=== PATIENT | male | born 1975 | race Two or more races ===

== ENCOUNTER 2023-06-07 21:31 | Emergency (ER) | payer SELFPAY ==
[~2023-06-07] VITALS: Ht 177.8 cm; Wt 90.9 kg
[2023-06-08] MEDS ORDERED: TETANUS-DIPTH-ACEL PERTUSSIS 0.5ML SYR Tdap IM ONE
[2023-06-08] MEDS ORDERED: cefTRIAXone SOD 1,000 MG VL IM ONE
[2023-06-08] MEDS ORDERED: KETOROLAC TROMETH 60MG/2ML VIAL IM ONE
[2023-06-08] MEDS ORDERED: CEPH500C PO (00:14)
[2023-06-08] MEDS ORDERED: MICO2AER EX (00:14)
[2023-06-08] MEDS ORDERED: IBUP-1455 PO (00:14)
[2023-06-08 03:04] VITALS: BP 138/79; PULSE 72; RESP 18; TEMP 98.2; O2SAT 98
== END 2023-06-08 03:09 | disposition home or self-care (01) ==
LOC: ER 21:35
DX: B35.3 Tinea pedis (principal); L08.9 Local infection of the skin and subcutaneous tissue, unspecified
CPT/HCPCS: 90471; 90715; 96372; 99284; J0696; J1885